=== PATIENT | male | born 1970 | race Caucasian/White ===

== ENCOUNTER 2017-10-21 19:55 | Emergency (ER) | payer BC ==
[~2017-10-21] VITALS: Ht 180.3 cm; Wt 115.7 kg
[2017-10-21 19:57] VITALS: TEMP 36.5; Ht 180.3 cm; Wt 115.7 kg
--- NOTE | 2017-10-21 20:52 | DIAGNOSTIC IMAGING REPORT ---
CT SCAN OF THE BRAIN WITHOUT IV CONTRAST CLINICAL HISTORY: Right-sided facial droop. COMPARISON STUDY: No priors. TECHNIQUE: Unenhanced axial CT scan of the brain is performed from the vertex to the skull base. A dose lowering technique was utilized adhering to the principles of ALARA. CT DOSE: 651.12 mGy.cm FINDINGS: Brain parenchyma: The brain parenchyma is normal in appearance. There is no hemorrhage, mass effect, or evidence of acute territorial ischemia by CT criteria. Curiel-white matter is preserved. No extra-axial fluid collection is seen. Ventricles, sulci, cisterns: Normal in configuration. Intracranial vasculature: The visualized intracranial vasculature at the skull base is normal in appearance. Calvarium: Unremarkable. Sinuses and mastoids: The visualized paranasal sinuses are clear. The mastoid air cells are well pneumatized. Orbits: The bony orbits are grossly intact. IMPRESSION: No acute intracranial abnormality. Electronically signed by: Diogo ePña M.D. 10/21/2017 8:51 PM Dictated Date/Time: 10/21/2017 8:49 PM
[2017-10-21 21:09] LABS: BASO % 0.3 %; BASO ABS # 0.03 K/uL (0-0.2); EOS % 2.1 %; EOS ABS # 0.19 K/uL (0-0.5); HEMATOCRIT 49.6 % (42-52); IG# 0.04 K/uL (0.00-0.02); LYMPH % 24.9 %; LYMPH ABS # 2.24 K/uL (1.2-3.4); MEAN CELL VOLUME 90.5 fL (80-100); MEAN CORPUSCULAR HGB CONC 34.3 g/dl (32-36); MEAN PLATELET VOLUME 10.8 fL (7.4-10.4); MONO % 6.9 %; MONO ABS # 0.62 K/uL (0.11-0.59); NEUT % 65.4 %; NEUT ABS # 5.87 K/uL (1.4-6.5); PLATELET COUNT 298 K/uL (130-400); RED CELL DISTRIBUTION WIDTH CV 12.7 % (11.5-14.5); RED CELL DISTRIBUTION WIDTH SD 42.1 fL (36.4-46.3); WHITE BLOOD COUNT 8.99 K/uL (4.8-10.8)
--- NOTE | 2017-10-21 21:14 | DIAGNOSTIC IMAGING REPORT ---
SINGLE VIEW CHEST CLINICAL HISTORY: Weakness. Change in mental status. FINDINGS: An AP, portable, upright chest radiograph is obtained. No prior studies are available for comparison at the time of dictation. The examination is degraded by portable technique, large body habitus, and patient rotation. The heart is top normal for projection. The mediastinal contour is within normal limits. The lungs and pleural spaces are clear. No pneumothorax is seen. The bony thorax is grossly intact. IMPRESSION: No acute cardiopulmonary abnormality. Electronically signed by: Diogo Peña M.D. 10/21/2017 9:13 PM Dictated Date/Time: 10/21/2017 9:12 PM
[2017-10-21 21:22] LABS: PTT PATIENT 28.7 SECONDS (21.0-31.0)
[2017-10-21 21:26] LABS: ALBUMIN 4.6 gm/dl (3.4-5.0); ALT/SGPT 84 U/L (12-78); BLOOD UREA NITROGEN 19 mg/dl (7-18); CALCIUM 9.3 mg/dl (8.5-10.1); CARBON DIOXIDE 26 mmol/L (21-32); CREATININE 1.29 mg/dl (0.60-1.40); GLUCOSE 91 mg/dl (70-99); POTASSIUM 3.6 mmol/L (3.5-5.1); SODIUM 138 mmol/L (136-145)
[2017-10-21 21:37] LABS: ALKALINE PHOSPHATASE 76 U/L (45-117); AST/SGOT 44 U/L (15-37); TOTAL PROTEIN 8.4 gm/dl (6.4-8.2)
[2017-10-21] MEDS ORDERED: IBUP-103 PO (21:54)
[2017-10-21] MEDS ORDERED: PRED20TA2 PO (22:20)
[2017-10-21] MEDS ORDERED: VALA1TAB2 PO (22:20)
--- NOTE | 2017-10-21 22:36 | EMERGENCY ROOM VISIT NOTE ---
History Report prepared by Thony: Kori Singh Under the Supervision of: Dr. Quang Banuelos D.O. First contact with patient: 20:02 Chief Complaint: STROKE SYMPTOMS Stated Complaint: DROOPING FACE, NUMB CHEEK Nursing Triage Summary: PT had H/A on Thursday to occipital area of head. 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 Speech is clear, PT has no confusion, right facial droop noted. PT also denies CP or SOB. lungs CTA. PT denies N/V. PT hand grasp strong and equal bilaterally, PT able to move all extremities without difficulty. PT able to stand on own independently. no obvious distress noted. History of Present Illness The patient is a 46 year old male who presents to the Emergency Room with complaints of persistent right facial droop starting earlier today. The right side of his face is numb and he is unable to smile with the right side of his face. The patient went to [facility] to have his blood pressure checked. He was told his facial droop was Clinton palsy and sent to the ED for high blood pressure. His blood pressure was 166/102 and 148/110 while he was at [facility]. The patient is not on any medications. He admits to alcohol use on the weekends. He denies any history of cancer or previous surgeries. He does spend time outside, but reports no recent tick bites. He denies any history of lyme disease. He has had a rash on his right leg for 2 years. He denies any chest pain or SOB. He notes recent weight gain. He has been able to do his normal daily activities. He has noticed some changes in his taste with the facial droop. He denies any changes in hearing. He works in law enforcement. Source of History: patient Onset: earlier today Position: other (right face) Quality: other (droop) Timing: other (persistent) Associated Symptoms: + numbness, + rash, No chest pain, No SOB Note: Pt reports weight gain. Review of Systems See HPI for pertinent positives & negatives. A total of 10 systems reviewed and were otherwise negative. Past Medical & Surgical No history of cancer. Family History No pertinent family history stated. Social History Smoking Status: Former Smoker Marital Status: Current/Historical Medications Scheduled Prednisone (Prednisone Tab), 40 MG PO DAILY Valacyclovir Hcl (Valtrex), 1,000 MG PO TID Scheduled PRN Ibuprofen Tab (Advil), 200-600 MG PO Q4H PRN for Pain Allergies Coded Allergies: No Known Allergies (Unverified , 10/21/17) Physical Exam Vital Signs Date Time Temp Pulse Resp B/P (MAP) Pulse Ox O2 Delivery O2 Flow Rate FiO2 10/21/17 22:43 89 18 166/110 98 Room Air 10/21/17 21:55 94 29 95 10/21/17 21:40 91 23 96 10/21/17 21:30 143/96 10/21/17 21:25 94 18 96 10/21/17 21:01 168/111 10/21/17 19:57 36.5 93 20 150/110 99 Room Air Physical Exam GENERAL: Patient is awake, alert, and in no acute distress. Patient is resting comfortably and showing no signs of anxiety EYES: The conjunctivae are clear. The pupils are round and reactive. EARS, NOSE, MOUTH AND THROAT: TMs clear bilaterally. The nose is without any evidence of any deformity. Mucous membranes are moist tongue is midline NECK: The neck is nontender and supple. RESPIRATORY: Normal respiratory effort is noted there is no evidence of wheezing rhonchi or rales CARDIOVASCULAR: Regular rate and rhythm noted there no murmurs rubs or gallops normal S1 normal S2 GASTROINTESTINAL: The abdomen is soft. Bowel sounds are present in all quadrants. Abdomen is nontender MUSCULOSKELETAL/EXTREMITIES: There is no evidence of gross deformity full range of motion is noted in the hips and shoulders SKIN: There is pedal edema bilaterally, right greater than left. NEUROLOGIC: Patient is awake alert and oriented x3 strength is symmetric patellar reflexes are 2+ bilaterally. Right facial droop with forehead involvement noted. Medical Decision & Procedures ER Provider Diagnostic Interpretation: X-ray results as stated below per interpretation by me and the radiologist. Radiology results as stated below per my review and radiologist interpretation: SINGLE VIEW CHEST CLINICAL HISTORY: Weakness. Change in mental status. FINDINGS: An AP, portable, upright chest radiograph is obtained. No prior studies are available for comparison at the time of dictation. The examination is degraded by portable technique, large body habitus, and patient rotation. The heart is top normal for projection. The mediastinal contour is within normal limits. The lungs and pleural spaces are clear. No pneumothorax is seen. The bony thorax is grossly intact. IMPRESSION: No acute cardiopulmonary abnormality. Electronically signed by: Diogo Peña M.D. 10/21/2017 9:13 PM Dictated Date/Time: 10/21/2017 9:[address] SCAN OF THE BRAIN WITHOUT IV CONTRAST CLINICAL HISTORY: Right-sided facial droop. COMPARISON STUDY: No priors. TECHNIQUE: Unenhanced axial CT scan of the brain is performed from the vertex to the skull base. A dose lowering technique was utilized adhering to the principles of ALARA. CT DOSE: 651.12 mGy.cm FINDINGS: Brain parenchyma: The brain parenchyma is normal in appearance. There is no hemorrhage, mass effect, or evidence of acute territorial ischemia by CT criteria. Curiel-white matter is preserved. No extra-axial fluid collection is seen. Ventricles, sulci, cisterns: Normal in configuration. Intracranial vasculature: The visualized intracranial vasculature at the skull base is normal in appearance. Calvarium: Unremarkable. Sinuses and mastoids: The visualized paranasal sinuses are clear. The mastoid air cells are well pneumatized. Orbits: The bony orbits are grossly intact. IMPRESSION: No acute intracranial abnormality. Electronically signed by: Diogo Peña M.D. 10/21/2017 8:51 PM Dictated Date/Time: 10/21/2017 8:49 PM Laboratory Results 10/21/17 20:30 Red Blood Count 5.48, Mean Corpuscular Volume 90.5, Mean Corpuscular Hemoglobin 31.0, Mean Corpuscular Hemoglobin Concent 34.3, Mean Platelet Volume 10.8, Neutrophils (%) (Auto) 65.4, Lymphocytes (%) (Auto) 24.9, Monocytes (%) (Auto) 6.9, Eosinophils (%) (Auto) 2.1, Basophils (%) (Auto) 0.3, Neutrophils # (Auto) 5.87, Lymphocytes # (Auto) 2.24, Monocytes # (Auto) 0.62, Eosinophils # (Auto) 0.19, Basophils # (Auto) 0.03 10/21/17 20:30 Test 10/21/17 20:30 White Blood Count 8.99 K/uL (4.8-10.8) Red Blood Count 5.48 M/uL (4.7-6.1) Hemoglobin 17.0 g/dL (14.0-18.0) Hematocrit 49.6 % (42-52) Mean Corpuscular Volume 90.5 fL (80-100) Mean Corpuscular Hemoglobin 31.0 pg (25-34) Mean Corpuscular Hemoglobin Concent 34.3 g/dl (32-36) Platelet Count 298 K/uL (130-400) Mean Platelet Volume 10.8 fL (7.4-10.4) Neutrophils (%) (Auto) 65.4 % Lymphocytes (%) (Auto) 24.9 % Monocytes (%) (Auto) 6.9 % Eosinophils (%) (Auto) 2.1 % Basophils (%) (Auto) 0.3 % Neutrophils # (Auto) 5.87 K/uL (1.4-6.5) Lymphocytes # (Auto) 2.24 K/uL (1.2-3.4) Monocytes # (Auto) 0.62 K/uL (0.11-0.59) Eosinophils # (Auto) 0.19 K/uL (0-0.5) Basophils # (Auto) 0.03 K/uL (0-0.2) RDW Standard Deviation 42.1 fL (36.4-46.3) RDW Coefficient of Variation 12.7 % (11.5-14.5) Immature Granulocyte % (Auto) 0.4 % Immature Granulocyte # (Auto) 0.04 K/uL (0.00-0.02) Prothrombin Time 10.7 SECONDS (9.0-12.0) Prothromb Time International Ratio 1.0 (0.9-1.1) Activated Partial Thromboplast Time 28.7 SECONDS (21.0-31.0) Partial Thromboplastin Ratio 1.1 Anion Gap 7.0 mmol/L (3-11) Est Creatinine Clear Calc Drug Dose 90.6 ml/min Estimated GFR () 75.5 Estimated GFR (Non- 65.1 BUN/Creatinine Ratio 14.5 (10-20) Calcium Level 9.3 mg/dl (8.5-10.1) Magnesium Level 2.2 mg/dl (1.8-2.4) Total Bilirubin 0.6 mg/dl (0.2-1) Direct Bilirubin 0.1 mg/dl (0-0.2) Aspartate Amino Transf (AST/SGOT) 44 U/L (15-37) Alanine Aminotransferase (ALT/SGPT) 84 U/L (12-78) Alkaline Phosphatase 76 U/L (45-117) Troponin I < 0.015 ng/ml (0-0.045) Total Protein 8.4 gm/dl (6.4-8.2) Albumin 4.6 gm/dl (3.4-5.0) Thyroid Stimulating Hormone (TSH) 1.460 uIu/ml (0.300-4.500) Lyme Disease IgG Antibody NEG (NEG) Lyme Disease IgM Antibody NEG (NEG) Laboratory results per my review. Medications Administered Medications (Trade) Dose Ordered Sig/[place] Route Start Time Stop Time Status Last Admin Dose Admin Prednisone (PredniSONE TAB) 60 mg NOW STAT PO 10/21/17 22:20 10/21/17 22:21 DC 10/21/17 22:41 60 MG Valacyclovir HCl (Valtrex Tab) 1,000 mg NOW ONCE PO 10/21/17 22:30 10/21/17 22:31 DC 10/21/17 22:40 1,000 MG ECG Per My Interpretation Indication: other Rate (beats per minute): 88 Rhythm: normal sinus Findings: no ectopy, other (no acute ST segment abnormality) Comparison ECG Date: no prior available ED Course 2009: The patient was evaluated in room C3. A complete history and physical examination were performed. 2220: Prednisone 60 mg PO. 2222: Upon reevaluation, the patient is resting comfortably. I discussed the results and treatment plan with him. He verbalized agreement of the treatment plan. He was discharged home. 2230: Valtrex Tab 1000 mg PO. Medical Decision Prior records/ancillary studies reviewed and summarized above. Nursing notes reviewed. Differential diagnosis: Etiologies such as metabolic, infection, hypo/hyperglycemia, electrolyte abnormalities, cardiac sources, intracerebral event, toxicologic, neurologic, as well as others were entertained. The patient is a 46-year-old male who presented to the emergency department for an evaluation of right facial droop. The patient had right facial droop with forehead involvement. He was seen at the [facility] but was sent to the emergency department because his blood pressure was elevated. I discussed patient's laboratory and radiographic studies with him. He was started on a steroid as well as an antiviral medication. He was encouraged to follow-up with his primary care physician as soon as possible. He was also given instructions on using Lacri-Lube. I did encourage him to return to the emergency department immediately if symptoms change worsen or the need arises. He was also made aware that his blood pressure was elevated and will require further monitoring to ensure that he does not need to be started on an antihypertensive medication chronically. Medication Reconcilliation Current Medication List: was personally reviewed by me Blood Pressure Screening Patient's blood pressure: Elevated blood pressure Blood pressure disposition: Referred to PCP Impression Primary Impression: Hypertension Additional Impression: David's palsy Scribe Attestation The scribe's documentation has been prepared under my direction and personally reviewed by me in its entirety. I confirm that the note above accurately reflects all work, treatment, procedures, and medical decision making performed by me. Departure Information Dispostion Home / Self-Care Prescriptions Prednisone (Prednisone Tab) 20 Mg Tab 40 MG PO DAILY, #10 TAB Prov: Quang Banuelos, DO 10/21/17 Valacyclovir Hcl (VALTREX) 1 Gm Tab 1000 MG PO TID, #21 TAB Prov: Quang Banuelos, DO 10/21/17 Referrals No Doctor, Assigned (PCP) Forms HOME CARE DOCUMENTATION FORM, IMPORTANT VISIT INFORMATION Patient Instructions ED [place] Palsy, ED Hypertension [place], [facility] Additional Instructions Call your family doctor to schedule a follow-up appointment. You will need to have your blood pressure rechecked to see if you require medications for chronic blood pressure treatment. I would recommend using an eye ointment such as Lacri-Lube in the eye 3-4 times a day and before bed. Continue all other medications as before. Problem Qualifiers Primary Impression: Hypertension Hypertension type: unspecified Qualified Codes: I10 - Essential (primary) hypertension
[2017-10-21 22:43] VITALS: BP 166/110; PULSE 89; O2SAT 98
== END 2017-10-21 22:50 | disposition home or self-care (01) ==
LOC: C.EDB 19:57 → C.EDC 22:50
DX: I10 Essential (primary) hypertension (principal); G51.0 Bell's palsy; R21 Rash and other nonspecific skin eruption; R60.0 Localized edema; Z87.891 Personal history of nicotine dependence